=== PATIENT | male | born 1945 | race Caucasian/White ===

== ENCOUNTER 2018-03-17 14:44 | Outpatient (CLI) | payer OTHER ==
[2018-03-17 15:35] LABS: eGFR (African) > 60; eGFR (Non-African) > 60
== END 2018-03-17 14:46 ==
LOC: LAB 14:44
PROVIDERS: ATTEND Otolaryngology
DX: E21.3 Hyperparathyroidism, unspecified (principal)
CPT/HCPCS: 36415; 80048; 82306; 83970

== ENCOUNTER 2018-08-28 14:30 | Outpatient (CLI) | payer OTHER ==
[2018-08-28 15:24] LABS: MEAN CORPUSCULAR HEMOGLOBIN 30.9 pg (28.0-34.0); MONOCYTES % 8.4 % (0.0-11.0)
[2018-08-28 15:25] LABS: BASOPHILS % 0.6 (0.0-1.5); EOSINOPHILS % 5.5 % (0.0-6.8); NEUTROPHILS # 3.6 # k/uL (1.4-7.7)
[2018-08-28 15:47] LABS: eGFR (Non-African) > 60
== END 2018-08-28 14:32 ==
LOC: LAB 14:30
PROVIDERS: ATTEND Nurse Practitioner Family
DX: E78.2 Mixed hyperlipidemia (principal); Z12.5 Encounter for screening for malignant neoplasm of prostate; E21.0 Primary hyperparathyroidism; E55.9 Vitamin D deficiency, unspecified
CPT/HCPCS: 36415; 80053; 80061; 82306; 82330; 84153; 85025

== ENCOUNTER 2019-02-17 00:14 | Emergency (ER) | payer OTHER ==
[2019-02-17] MEDS ORDERED: ASPIRIN 325 MG TABLET PO ONE (00:34)
[2019-02-17] MEDS ORDERED: ASPIRIN 81 MG CHEW TAB ONE (00:35)
[2019-02-17] MEDS ORDERED: NITROGLYCERIN 0.4 MG TAB.SUBL SL ONE ×2 (01:06)
--- NOTE | 2019-02-17 01:12 | ED Physician Documentation ---
Chest Pain - HISTORIAN Historian: patient - HPI Stated Complaint: Chest Pain Chief Complaint: Chest Pain Onset: days ago (2) Duration: waxing, waning Last known Well Date: 02/14/19 Last Known Well Time: 08:00 Context: rest Severity: moderate Quality: pressure, tightness Chest Pain Radiation: no radiation Chest Pain Signs/Symptoms: diaphoresis. denies: nausea, vomiting Worsened By: exertion Relieved By: nothing Further Comments: yes (73 year old male patient presents with complaint of intermittent chest pain for the past 2 days. Patient reports mild SOB and diaphoresis with exerction. Denies nausea. States pain is worse with cough.) - ROS CONST: other (worsening dysphagia) MS/LYMPH: other (scant edema in legs) GI/: none EYES/ENT: none SKIN/ENDO: none NEURO/PSYCH: none - PAST HX ME risk factors: hyperlipidemia DVT/PE Risk Factors: leg swelling (scant bilateral) TAD/AAA risk factors: none Neuro deficit: TIA GI disease: none Lung disease: none Surgeries/Procedures: other (inguinal hernia repair; cyst removed from vocal cords 09/2015) Allergies/Adverse Reactions: Allergies Allergy/AdvReac Type Severity Reaction Status Date / Time No Known Allergies Allergy Verified 02/17/19 00:27 Home Medications: Ambulatory Orders Medication Instructions Recorded Acyclovir [Zovirax] 12/07/18 Bupropion HCl [Bupropion HCl Sr] 150 mg PO 12/07/18 Cyclobenzaprine HCl [Flexeril] 10 mg PO TID PRN #30 tablet 12/07/18 Meloxicam 15 mg PO DAILY #14 tablet 12/07/18 Sumatriptan Succinate 100 mg PO 12/07/18 - SOCIAL HX Smoking History: cigarettes - FAMILY HX Family HX: denies: none - VITAL SIGNS Vital Signs: Vital Signs Temp Pulse Resp BP Pulse Ox 98.5 F 68 10 L 144/95 96 02/17/19 00:14 02/17/19 00:58 02/17/19 00:58 02/17/19 00:58 02/17/19 00:58 - REVIEWED ASSESSMENTS Nursing Assessment Reviewed: Yes Vitals Reviewed: Yes Progress - Progress Progress: Significant dysphagia noted with patient swallow water to take aspirin. Daughter and patient report worsening difficulty with swallowing since vocal cord surgery. Chest pain improved from 2/10 to 1-2/10 with 1 SL nitro. Patient refused second nitro. 0130 Patient reports pain is improved "but still present". Refuses 2nd nitro. O2 on at 2L NC. Offered transfer to high level of care, recommended repeat troponin in 4 hours. 0145 Technical issue with cardiac enzyme analyzer. Unable to perform 4 hour troponin. Updated patient and family. Recommend transfer for further evaluat ion. Patient prefers [facility]. Nitro paste applied. 0147 Call to [facility] no available beds. 0153 Call to [facility]. [address] Fernandez. - EKG/XRAY/CT EKG: rhythm (Sr, rate 73) ED Results Lab/Radiology - Radiology Radiology Impressions: PA and lateral chest Clinical history: Chest pain. Findings: Examination of the chest in PA and lateral views demonstrates the lungs to be clear. Cardiac silhouette is within normal limits. Monitor leads superimpose the chest. Impression: 1. Negative chest. Electronically signed on Feb 17, 2019 1:23:11 AM CDT by: Aleksandr Mcdowell - Orders Orders: ED Orders Category Date Time Status Continuous EKG monitoring Q30M Care 02/17/19 00:37 Active CHEST 2VIEW [RAD] Stat Exams 02/17/19 Taken BNP [NTBNP] Stat Lab 02/17/19 01:05 Received CBC/PLATELET/DIFF Stat Lab 02/17/19 00:31 Received CMP [CMP] Stat Lab 02/17/19 00:31 Received TROPONIN I Stat Lab 02/17/19 00:31 Received Aspirin [Henry] Med 02/17/19 00:35 Discontinued 324 mg .ROUTE .STK-MED ONE Aspirin [Henry] Med 02/17/19 00:34 Discontinued 325 mg PO NOW ONE Nitroglycerin [Nitroquick] Med 02/17/19 01:06 Discontinued 0.4 mg SL .STK-MED ONE Nitroglycerin [Nitroquick] Med 02/17/19 01:06 Discontinued 0.4 mg SL NOW ONE EKG WITH COMPARISON Stat Ther 02/17/19 Ordered Chest Pain Physical Exam - EXAM General Appearance: mild distress EENT: eye inspection normal, PAUL Respiratory: no resp. distress, nml breath sounds, other (mild reproduction of chest pain with palpation along left sternal border. ) CVS: reg. rate & rhythm, no murmur, no gallop, no friction rub, pulses full, pulses equal Abdomen: soft, no organomegaly, normal bowel sounds, no abdominal bruit, no distension Skin: normal color, warm/dry, NR, INT, DR Extremities: non-tender, normal range of motion, no evidence of injury, no edema, J, [employer] Neuro: oriented X3, CN's nml as tested, motor nml, sensation nml, mood/affect nml Discharge Clincal Impression: Chest pain Qualifiers: Chest pain type: unspecified Qualified Code(s): R07.9 - Chest pain, unspecified Dysphagia Qualifiers: Dysphagia type: unspecified Qualified Code(s): R13.10 - Dysphagia, unspecified Referrals: Lila Henriquez PRN [Primary Care Provider] - 2 Days Condition: Stable Disposition: 02 XFER [id number]P Decision to Admit: NO Decision Time: 02:21
[2019-02-17] MEDS ORDERED: NITROGLYCERIN 2% 1GM OINT PACKET...G. TD ONE ×2 (01:34→01:41)
[2019-02-17 03:40] VITALS: BP 134/78
--- NOTE | 2019-02-17 05:55 | Diagnostic Imaging Report ---
ANDI KEN ([employer]) - ER [facility] [address] [facility].[address] [id number] Report Submission Date: Feb 17, 2019 1:23:11 AM CDT Patient Study Name: ANDRÉS REDDY Date: Feb 17, 2019 12:33:22 AM CDT Modality Type: DX Gender: M Description: CHEST 2VIEW : 49 Institution: [facility] Physician: ANDI KEN ([employer]) - ER PA and lateral chest Clinical history: Chest pain. Findings: Examination of the chest in PA and lateral views demonstrates the lungs to be clear. Cardiac silhouette is within normal limits. Monitor leads superimpose the chest. Impression: 1. Negative chest. Electronically signed on Feb 17, 2019 1:23:11 AM CDT by: Alekasndr FLOREZ
[2019-02-18 07:33] LABS: eGFR (Non-African) > 60
[2019-02-18 07:34] LABS: BASOPHILS % 0.6 % (0.0-1.5); NEUTROPHILS # 6.8 # k/uL (1.4-7.7)
== END 2019-02-17 03:35 | disposition short-term general hospital (02) ==
LOC: ED 00:14
DX: R07.9 Chest pain, unspecified (principal); R06.00 Dyspnea, unspecified
CPT/HCPCS: 71046; 80053; 84484; 85025; S1016